=== PATIENT | female | born 1965 | race Caucasian/White ===

== ENCOUNTER → 2016-09-03 | Outpatient (CLI) | payer OTHER ==
--- NOTE | 2016-09-03 11:08 | CT ---
CT Virtual Colonography History: Incomplete colonoscopy. Nonsmoker with no cancer history. Comparison: None available. Technique: Spiral imaging was obtained through the abdomen and pelvis with images reconstructed down to 1.25-mm slice thickness in supine and prone position. Carbon dioxide was administered through our pump via a rectal tube as per usual technique. Images were evaluated on 3D software with volume rende ring for virtual colonoscopy. Orthogonal imaging was also reviewed. Dose reduction techniques were ut ilized. Findings: On the virtual colonoscopy images, there is good distention of the colon. There is extensiv e retained tagging agent, particularly in the cecum and ascending colon, which slightly limits sensit ivity. There is no evidence of polypoid mass or constricting lesion within the colon. Minimal sigmoid diverticulosis is present. The appendix is normal. There is an indeterminate 1 cm hypodensity in the lateral segment left hepatic lobe (series 2 image 4 7) that measures approximately 50 Hounsfield units. The spleen, gallbladder, pancreas, and adrenals h ave a normal unenhanced appearance. There are multiple nonobstructing stones in the kidneys, measuri ng up to 4 mm bilaterally. The aorta is normal caliber. There is no ascites. The bladder is decompres sed. No pelvic masses are seen. No aggressive osseous lesions are identified. Mild dextroscoliosis o f the lumbar spine is present with multilevel mild degenerative change. Impression: 1. No visible colonic mass, with slightly limited colonic assessment due to extensive retained taggin g agent. 2. Indeterminate left hepatic hypodensity. MR abdomen with contrast is recommended for further evalua tion. 3. Nonobstructing nephrolithiasis. 4. Additional findings as above. Findings discussed with Shelby Zavala's diploma medical assistant, September 03, 2016 at 1543 hours .
== END ==
LOC: FIMAGING 08:11
PROVIDERS: ATTEND Internal Medicine Gastroenterology
DX: Z83.71 Family history of colonic polyps (principal); R93.2 Abnormal findings on diagnostic imaging of liver and biliary tract; N20.0 Calculus of kidney